=== PATIENT | male | born 2000 | race Caucasian/White ===

== ENCOUNTER 2025-09-14 21:53 | Emergency (ER) | payer OTHER ==
[2025-09-14] MEDS: Sodium Chloride 0.9% 10 ML Syringe FLUSH PRN (22:59)
[2025-09-14 23:01] LABS: BASOPHILS ABSOLUTE AUTO 0.0 K/mm3 (0.0-0.2); BASOPHILS PERCENT AUTO 0.4 % (0.0-1.0); EOSINOPHILS ABSOLUTE AUTO 0.1 K/mm3 (0.0-0.4); EOSINOPHILS PERCENT AUTO 1.8 % (0.0-6.0); IMMATURE GRAN ABSOLUTE AUTO 0.07 K/mm3 (0.00-0.05); IMMATURE GRAN PERCENT AUTO 2.6 % (0.0-0.4); LYMPHOCYTES ABSOLUTE AUTO 0.5 K/mm3 (1.0-4.8); LYMPHOCYTES PERCENT AUTO 17.0 % (24.0-44.0); MEAN PLATELET VOLUME 10.5 fl (9.4-12.4); MONOCYTES ABSOLUTE AUTO 0.1 K/mm3 (0.0-0.8); MONOCYTES PERCENT AUTO 3.0 % (0.0-8.0); NEUTROPHILS ABSOLUTE AUTO 2.0 K/mm3 (1.8-7.7); NEUTROPHILS PERCENT AUTO 75.2 % (41.0-71.0); NRBC ABSOLUTE 0.00 (0.00-0.02); NRBC PERCENT 0.0 % (0.0-0.2); PLATELET COUNT,PLT 146 K/mm3 (150-400); RED BLOOD CELL COUNT 4.25 M/mm3 (4.52-5.90); WHITE BLOOD CELL COUNT,WBC 2.71 K/mm3 (3.9-11.3)
[2025-09-14 23:29] LABS: LACTIC ACID 0.7 mmol/L (0.4-2.0)
[2025-09-14 23:36] LABS: A/G RATIO 0.9 (1-2); ALANINE AMINOTRANSFERASE,ALT 31.0 U/L (16-63); ASPARTATE AMNIOTRANSFERASE,AST 40.0 U/L (15-37); BILIRUBIN TOTAL 0.6 mg/dL (0.2-1.0); BLOOD UREA NITROGEN,BUN 18.0 mg/dL (7-18); CARBON DIOXIDE,CO2 23.0 mEq/L (21-32); CHLORIDE,CL 109.0 mEq/L (98-107); CREATINE KINASE,CK 231.0 U/L (39-308); CREATININE 1.6 mg/dL (0.7-1.3); EST CRCL DRUG DOSING (CG) 79.61 mL/min; ESTIMATED GFR 61.0 mL/min (>60); GLUCOSE RANDOM 127.0 mg/dL (70-99); POTASSIUM,K 3.7 mEq/L (3.5-5.1); PROTEIN TOTAL,TP 6.8 g/dl (6.4-8.2); SODIUM,NA 141.0 mEq/L (136-145)
[2025-09-14] MEDS ORDERED: Naloxone 0.4 MG/ML SDV IVPUSH PRN (23:40)
[2025-09-15] MEDS: Ketorolac 30 MG/ML SDV IVPUSH ONE (00:34)
[2025-09-15 01:15] LABS: HEPATITIS C AB NON-REACTIVE (Non-React)
[2025-09-15 01:27] LABS: APPEARANCE,URINE CLEAR (Clear); GLUCOSE,URINE NEGATIVE (Negative); OCCULT BLOOD,URINE NEGATIVE (Negative)
[2025-09-15 01:55] LABS: EPITHELIAL CELLS,URINE 0-5 /hpf (0-5)
[2025-09-15] MEDS: methylPREDNISolone Sodium Succinate 125 MG/2 ML SDV IVPUSH ONE (04:27)
[2025-09-17 04:42] LABS: KEPPRA <2.0 ug/mL (10.0-40.0)
[2025-09-17 05:41] LABS: ANA BY ELISA, IGG W/RFLX IFA Detected (None Detected)
[2025-09-18 04:41] LABS: PARVOVIRUS B19 IGG 11.49 IV (<=0.90); PARVOVIRUS B19 IGM 0.61 IV (<=0.89)
[2025-09-19 04:46] LABS: ANA,HEP-2,IGG Detected (<1:80); CYTOPLASMIC TITER 1:160
== END 2025-09-15 04:39 | disposition home or self-care (01) ==
LOC: JD.ED 21:53 → MERGE 21:53 → JD.ED 09-15 04:39
DX: M25.562 Pain in left knee (principal); M25.561 Pain in right knee; M25.532 Pain in left wrist; M25.531 Pain in right wrist; M25.572 Pain in left ankle and joints of left foot; M25.571 Pain in right ankle and joints of right foot; M25.522 Pain in left elbow; M25.521 Pain in right elbow; Z84.89 Family history of other specified conditions
CPT/HCPCS: 36415; 71046; 80053; 80177; 81001; 82533; 82550; 83605; 85025; 85652; 86038; 86140; 86308; 86747; 86803; 87428; 87651; 93005; 96374; 96375; 96376; 99284; A9270; J1885; J2270; J2919; J7030; 86039; 93010; J1171

== ENCOUNTER 2025-09-28 17:33 | Inpatient (IN) | payer OTHER ==
[2025-09-28] MEDS ORDERED: Sodium Chloride 0.9% 10 ML Syringe FLUSH PRN (18:18)
[2025-09-28 18:33] LABS: BASOPHILS ABSOLUTE AUTO 0.0 K/mm3 (0.0-0.2); BASOPHILS PERCENT AUTO 0.0 % (0.0-1.0); EOSINOPHILS ABSOLUTE AUTO 0.1 K/mm3 (0.0-0.4); EOSINOPHILS PERCENT AUTO 2.0 % (0.0-6.0); IMMATURE GRAN ABSOLUTE AUTO 0.13 K/mm3 (0.00-0.05); IMMATURE GRAN PERCENT AUTO 2.2 % (0.0-0.4); LYMPHOCYTES ABSOLUTE AUTO 0.7 K/mm3 (1.0-4.8); LYMPHOCYTES PERCENT AUTO 12.0 % (24.0-44.0); MEAN PLATELET VOLUME 10.3 fl (9.4-12.4); MONOCYTES ABSOLUTE AUTO 0.3 K/mm3 (0.0-0.8); MONOCYTES PERCENT AUTO 4.3 % (0.0-8.0); NEUTROPHILS ABSOLUTE AUTO 4.8 K/mm3 (1.8-7.7); NEUTROPHILS PERCENT AUTO 79.5 % (41.0-71.0); NRBC ABSOLUTE 0.00 (0.00-0.02); NRBC PERCENT 0.0 % (0.0-0.2); PLATELET COUNT,PLT 250 K/mm3 (150-400); RED BLOOD CELL COUNT 3.84 M/mm3 (4.52-5.90); WHITE BLOOD CELL COUNT,WBC 6.00 K/mm3 (3.9-11.3)
[2025-09-28 18:51] LABS: APPEARANCE,URINE CLEAR (Clear); GLUCOSE,URINE NEGATIVE (Negative); OCCULT BLOOD,URINE 3+ (Negative)
[2025-09-28 18:59] LABS: COARSE GRANULAR CASTS,URINE 0-5 /hpf (0-5); EPITHELIAL CELLS,URINE 0-5 /hpf (0-5)
[2025-09-28 19:06] LABS: A/G RATIO 0.8 (1-2); ALANINE AMINOTRANSFERASE,ALT 29.0 U/L (16-63); ASPARTATE AMNIOTRANSFERASE,AST 20.0 U/L (15-37); BILIRUBIN TOTAL 0.5 mg/dL (0.2-1.0); BLOOD UREA NITROGEN,BUN 21.0 mg/dL (7-18); CARBON DIOXIDE,CO2 25.0 mEq/L (21-32); CHLORIDE,CL 109.0 mEq/L (98-107); CREATININE 1.1 mg/dL (0.7-1.3); EST CRCL DRUG DOSING (CG) 117.03 mL/min; ESTIMATED GFR 96.0 mL/min (>60); POTASSIUM,K 3.9 mEq/L (3.5-5.1); PROTEIN TOTAL,TP 6.0 g/dl (6.4-8.2); SODIUM,NA 143.0 mEq/L (136-145); TSH 1.525 uIU/mL (0.358-3.74)
[2025-09-28 19:07] LABS: GLUCOSE RANDOM 129.0 mg/dL (70-99)
[2025-09-28] MEDS: Sodium Chloride 0.9% 10 ML Syringe FLUSH ONE (19:26)
[2025-09-28] MEDS: Iopamidol 755 Mg/ML 100 ML Bottle IVPUSH ONE (19:26)
[2025-09-28 19:52] LABS: TROPONIN I HIGH SENSITIVITY 31.0 pg/mL (<=76)
[2025-09-28] MEDS: Metoprolol Tartrate 5 MG/5 ML SDV IVPUSH ONE (20:48)
[2025-09-28] MEDS: Furosemide 40 MG/4 ML VIAL IVPUSH ONE (21:06)
[2025-09-28] MEDS: Labetalol 100 MG/20 ML MDV IVPUSH ONE (22:02)
[2025-09-29] MEDS: Furosemide 40 MG/4 ML VIAL IVPUSH ONE (06:13)
[2025-09-29 07:22] LABS: MEAN PLATELET VOLUME 10.1 fl (9.4-12.4); NRBC ABSOLUTE 0.00 (0.00-0.02); NRBC PERCENT 0.0 % (0.0-0.2); PLATELET COUNT,PLT 214 K/mm3 (150-400); RED BLOOD CELL COUNT 3.78 M/mm3 (4.52-5.90); WHITE BLOOD CELL COUNT,WBC 5.49 K/mm3 (3.9-11.3)
[2025-09-29 07:43] LABS: BLOOD UREA NITROGEN,BUN 18.0 mg/dL (7-18); CARBON DIOXIDE,CO2 30.0 mEq/L (21-32); CHLORIDE,CL 106.0 mEq/L (98-107); CREATININE 1.2 mg/dL (0.7-1.3); EST CRCL DRUG DOSING (CG) 107.27 mL/min; ESTIMATED GFR 87.0 mL/min (>60); GLUCOSE RANDOM 99.0 mg/dL (70-99); POTASSIUM,K 3.4 mEq/L (3.5-5.1); SODIUM,NA 144.0 mEq/L (136-145)
[2025-09-29] MEDS: Magnesium Sulfate 2 GM/50 mL 2 GM in Premix Bag 1 BAG IV ONE (08:35)
[2025-09-29 08:38] LABS: CHOLESTEROL HDL 42 mg/dL (40-59); CHOLESTEROL LDL DIRECT 159 mg/dL (<100); CHOLESTEROL TOTAL 244 mg/dL (<200)
[2025-09-29] MEDS: Potassium Chloride 20 MEQ Tab.ER PO ONE (08:43)
[2025-09-29] MEDS: Labetalol 100 MG/20 ML MDV IVPUSH PRN (08:47)
[2025-09-29 09:12] LABS: CREATININE,URINE RAND 63.8 mg/dL (30.0-125.0)
[2025-09-29 09:16] LABS: PROTEIN,URINE RANDOM 389.2 mg/dL (0.0-11.8)
[2025-09-29] MEDS: Acetaminophen/Butalbital/Caffeine 325-50-40 MG Tab PO ONE (11:24)
[2025-09-29] MEDS: Ondansetron 4 MG Tab.DIS PO PRN (11:27)
[2025-09-29] MEDS: Furosemide 40 MG/4 ML VIAL IVPUSH SCH (13:06)
[2025-09-29] MEDS: hydrALAZINE 20 MG/ML SDV IVPUSH ONE ×2 (13:56→15:26)
[2025-09-29] MEDS: Ondansetron 4 MG/2 ML SDV IV PRN (15:04)
[2025-09-30 05:53] LABS: BASOPHILS ABSOLUTE AUTO 0.0 K/mm3 (0.0-0.2); BASOPHILS PERCENT AUTO 0.4 % (0.0-1.0); EOSINOPHILS ABSOLUTE AUTO 0.0 K/mm3 (0.0-0.4); EOSINOPHILS PERCENT AUTO 0.4 % (0.0-6.0); IMMATURE GRAN ABSOLUTE AUTO 0.10 K/mm3 (0.00-0.05); IMMATURE GRAN PERCENT AUTO 1.3 % (0.0-0.4); LYMPHOCYTES ABSOLUTE AUTO 0.6 K/mm3 (1.0-4.8); LYMPHOCYTES PERCENT AUTO 8.0 % (24.0-44.0); MEAN PLATELET VOLUME 10.5 fl (9.4-12.4); MONOCYTES ABSOLUTE AUTO 0.4 K/mm3 (0.0-0.8); MONOCYTES PERCENT AUTO 5.2 % (0.0-8.0); NEUTROPHILS ABSOLUTE AUTO 6.8 K/mm3 (1.8-7.7); NEUTROPHILS PERCENT AUTO 84.7 % (41.0-71.0); NRBC ABSOLUTE 0.00 (0.00-0.02); NRBC PERCENT 0.0 % (0.0-0.2); PLATELET COUNT,PLT 248 K/mm3 (150-400); RED BLOOD CELL COUNT 4.13 M/mm3 (4.52-5.90); WHITE BLOOD CELL COUNT,WBC 7.96 K/mm3 (3.9-11.3)
[2025-09-30 06:07] LABS: A/G RATIO 0.6 (1-2); ALANINE AMINOTRANSFERASE,ALT 22.0 U/L (16-63); ASPARTATE AMNIOTRANSFERASE,AST 18.0 U/L (15-37); BILIRUBIN TOTAL 0.8 mg/dL (0.2-1.0); BLOOD UREA NITROGEN,BUN 21.0 mg/dL (7-18); CARBON DIOXIDE,CO2 28.0 mEq/L (21-32); CHLORIDE,CL 103.0 mEq/L (98-107); CREATININE 1.4 mg/dL (0.7-1.3); EST CRCL DRUG DOSING (CG) 91.95 mL/min; ESTIMATED GFR 72.0 mL/min (>60); GLUCOSE RANDOM 119.0 mg/dL (70-99); POTASSIUM,K 4.0 mEq/L (3.5-5.1); PROTEIN TOTAL,TP 6.3 g/dl (6.4-8.2); SODIUM,NA 140.0 mEq/L (136-145)
[2025-09-30] MEDS: Iopamidol 755 Mg/ML 100 ML Bottle IVPUSH ONE ×2 (08:23→08:24)
[2025-09-30] MEDS: Carboxymethylcellulose Sodium 1% Ophth Gel 15 ML Bottle EYEBOTH PRN (10:01)
[2025-09-30] MEDS: NIFEdipine 30 MG Tab.ER PO SCH (10:04)
[2025-09-30] MEDS ORDERED: Ketorolac 30 MG/ML SDV IVPUSH ONE (11:31)
[2025-09-30] MEDS: LORazepam 2 MG/ML SDV ONE (12:08)
[2025-09-30] MEDS: Labetalol 100 MG/20 ML MDV IVPUSH ONE (12:08)
[2025-09-30] MEDS: levETIRAcetam 500 MG/5 ML SDV IVPUSH ONE (12:18)
[2025-10-02 09:42] LABS: HAV AB IGM Negative (Negative); HBC IGM Negative (Negative); HEP B SURG AG Negative (Negative); HEP C AB BY CIA Negative (Negative); HEP C AB BY CIA INDEX 0.09 IV
[2025-10-02 17:47] LABS: ANA BY ELISA, IGG W/RFX TO IFA Detected (None Detected)
[2025-10-02 22:43] LABS: ANTI-GBM 0 AU/mL (0-19); SERINE PROTEINASE 3, IGG 0 AU/mL (0-19); SSA 52 AB, IGG 19 AU/mL (0-40); SSA 60 AB, IGG 104 AU/mL (0-40)
[2025-10-03 10:47] LABS: ANTI-RNP, MAYO 0.2 U; ANTI-SCL70, MAYO 0.6 U; ANTI-SMITH, MAYO 0.6 U; ANTI-SSA, MAYO >8.0 U; ANTI-SSB, MAYO 0.5 U; JO-1 AB, IGG, MAYO <0.2 U
== END 2025-09-30 12:48 | DRG 699 ==
LOC: JD.ED 17:33 → JD.MS 20:28
PROVIDERS: ADMIT Family Medicine; ATTEND Family Medicine
DX: N04.9 Nephrotic syndrome with unspecified morphologic changes (principal); I43 Cardiomyopathy in diseases classified elsewhere; J91.8 Pleural effusion in other conditions classified elsewhere; J98.11 Atelectasis; I11.9 Hypertensive heart disease without heart failure; N06.20 Isolated proteinuria with diffuse membranous glomerulonephritis, unspecified; E87.6 Hypokalemia; E83.42 Hypomagnesemia; E78.2 Mixed hyperlipidemia; R80.9 Proteinuria, unspecified; R76.89 Other specified abnormal immunological findings in serum; R79.89 Other specified abnormal findings of blood chemistry; R56.9 Unspecified convulsions; M19.90 Unspecified osteoarthritis, unspecified site; N26.9 Renal sclerosis, unspecified; M32.14 Glomerular disease in systemic lupus erythematosus; Z86.19 Personal history of other infectious and parasitic diseases; Z79.1 Long term (current) use of non-steroidal anti-inflammatories (NSAID); Z79.899 Other long term (current) drug therapy
CPT/HCPCS: 36415; 70496; 70496-26; 71045; 71045-26; 71275; 71275-26; 74175; 74175-26; 76775; 76775-26; 80048; 80053; 80061; 80074; 81001; 82570; 83036; 83516; 83735; 83880; 84156; 84443; 84484; 85025; 85027; 85379; 85652; 86038; 86140; 86160; 86235; 86256; 86334; 93005; 93010; 93306; 93976; 93976-26; 99223; 99239; 99285; A9270-GY; G0433; J0360; J0616; J1650; J1920; J1938; J1953; J2060; J2405; J2765; J3475; Q9967